=== PATIENT | female | born 2000 | race Caucasian/White ===

== ENCOUNTER 2019-10-11 09:11 | Inpatient (IN) ==
[2019-10-11 04:11] LABS: Basophils % 0.2 %; Eosinophils # 0.2 K/mcL (0.0-0.6); Hematocrit 37.7 % (35.3-44.9); Hemoglobin 12.9 g/dL (11.5-15.4); Immature Granulocytes % 0.4 % (0-4); Lymphocytes # 2.5 K/mcL (0.6-4.6); Lymphocytes % 15.7 %; Mean Corpuscular HGB Conc 34.2 g/dL (31.6-35.5); Mean Corpuscular Hemoglobin 30.6 pg (28.0-33.3); Mean Corpuscular Volume 89.3 fL (83.0-100.0); Mean Platelet Volume 12.8 fL (9.4-12.4); Monocytes % 12.5 %; Neutrophils # 11.1 K/mcL (1.6-8.9); Platelet Count 246 K/mcL (140-400); Red Blood Count 4.22 M/mcL (3.82-4.97); Segmented Neutrophils % 70.2 %; White Blood Count 15.8 K/mcL (4.3-11.1)
[2019-10-11 04:21] LABS: Creatinine,Urine 9 mg/dL
[2019-10-11 04:37] LABS: Alanine Aminotransferase 12 Units/L (7-52); Aspartate Amino Transferase 19 Units/L (13-39); BUN/Creatinine Ratio 12 (6-26); Blood Urea Nitrogen 7 mg/dL (6-20); Lactate Dehydrogenase 172 Units/L (140-271); Uric Acid 5.5 mg/dL (2.3-7.6); eGFR For African Americans > 60 (> 60); eGFR For Non-African Americans > 60 (> 60)
[~2019-10-11 09:11] MED LIST: *HR* FentaNYL (PF) 100 MCG/2 ML VIAL IVP PRN; Acetaminophen 325 MG TABLET PO ONE; Famotidine 20 MG/2 ML VIAL IVP PRN; Lidocaine 1% 20 ML MDV INFILT PRN; Metoclopramide 10 MG/2 ML VIAL IVP PRN; Naloxone 0.4 MG/ML INJ IVP PRN; Ondansetron 4 MG/2 ML VIAL IVP PRN; miSOPROStoL 25 MCG TABLET PO PRN
[2019-10-11] MEDS ORDERED: Ringers Solution, Lactated 1,000 ML IVC SCH (09:15)
[2019-10-11] MEDS ORDERED: Famotidine 20 MG/2 ML VIAL IVP ONE (11:20)
[2019-10-11] MEDS ORDERED: Ondansetron 4 MG/2 ML VIAL IVP PRN (17:47)
[2019-10-11] MEDS ORDERED: Naloxone 0.4 MG/ML INJ IVP PRN (17:47)
[2019-10-11] MEDS ORDERED: EPHEDrine 50 MG/ML VIAL IVP PRN (17:47)
[2019-10-11] MEDS ORDERED: *HR* FentaNYL (PF) 100 MCG/2 ML VIAL EP ONE (17:47)
[2019-10-11] MEDS ORDERED: Ropivacaine/PF 0.2% 20 ML VIAL EP ONE (17:47)
[2019-10-11] MEDS ORDERED: *HR* FentaNYL (PF) 100 MCG/2 ML VIAL ONE (21:29)
[2019-10-11] MEDS: Epidural Premix (fent/bupiv) 110 ML EP SCH (21:56)
[2019-10-11] MEDS: Oxytocin 20 units/ LR 1000 mL 20 UNIT/1,000 ML BAG IVC SCH (22:50)
[2019-10-12] MEDS: Epidural Premix (fent/bupiv) 110 ML EP SCH (03:48)
[2019-10-12] MEDS: Oxytocin 20 units/ LR 1000 mL 20 UNIT/1,000 ML BAG IVC SCH (10:02)
[2019-10-12] MEDS ORDERED: Measles/Mumps/Rubella Vacc 0.5 ML VIAL SQ PRN (10:41)
[2019-10-12] MEDS ORDERED: Oxytocin 20 units/ LR 1000 mL 20 UNIT/1,000 ML BAG IVC SCH (10:41)
[2019-10-12] MEDS ORDERED: Prenatal Vit/FA 1 EACH TABLET PO SCH (10:41)
[2019-10-12] MEDS ORDERED: Rho Immune Globulin 1,500 UNIT SYRINGE IM PRN (10:41)
[2019-10-12] MEDS ORDERED: Oxytocin 20 units/ LR 1000 mL 20 UNIT/1,000 ML BAG IVC ONE (10:41)
[2019-10-12] MEDS ORDERED: Sennosides 8.6 MG TABLET PO PRN (10:41)
[2019-10-12] MEDS ORDERED: Acetaminophen 325 MG TABLET PO PRN (10:41)
[2019-10-12] MEDS ORDERED: Benzocaine/Menthol 56 GM AEROSOL SPRAY TP PRN (10:41)
[2019-10-12] MEDS ORDERED: Lanolin 7 G OINT...G. TP PRN (10:41)
[2019-10-12] MEDS ORDERED: Ondansetron 4 MG/2 ML VIAL IVP PRN (13:16)
[2019-10-12] MEDS ORDERED: Famotidine 20 MG/2 ML VIAL IVP ONE (13:21)
[2019-10-12] MEDS: Ibuprofen 600 MG TABLET PO PRN (15:59)
[2019-10-13 06:22] LABS: Basophils # 0.1 K/mcL (0.0-0.2); Basophils % 0.3 %; Eosinophils # 0.3 K/mcL (0.0-0.6); Eosinophils % 1.6 %; Hematocrit 36.6 % (35.3-44.9); Hemoglobin 12.2 g/dL (11.5-15.4); Immature Granulocytes % 0.5 % (0-4); Lymphocytes # 2.6 K/mcL (0.6-4.6); Lymphocytes % 17.2 %; Mean Corpuscular HGB Conc 33.3 g/dL (31.6-35.5); Mean Corpuscular Hemoglobin 30.5 pg (28.0-33.3); Mean Corpuscular Volume 91.5 fL (83.0-100.0); Mean Platelet Volume 12.5 fL (9.4-12.4); Monocytes # 2.1 K/mcL (0.0-1.3); Monocytes % 13.4 %; Neutrophils # 10.2 K/mcL (1.6-8.9); Platelet Count 218 K/mcL (140-400); Red Cell Distribution Width 13.2 % (11.5-14.5); White Blood Count 15.3 K/mcL (4.3-11.1)
[2019-10-13] MEDS: Ibuprofen 600 MG TABLET PO PRN (08:20)
[2019-10-13 08:40] VITALS: BP 110/70
== END 2019-10-13 13:48 | disposition home or self-care (01) | DRG 560 ==
LOC: 1NENULAB → 1NENUOBS 10-12 14:05
PROVIDERS: ADMIT Registered Nurse; ATTEND Registered Nurse